=== PATIENT | male | born 1980 | race Caucasian/White ===

== ENCOUNTER 2019-05-04 10:41 | Inpatient (IN) | payer OTHER ==
[2019-05-04 12:07] VITALS: BMI 26.8
--- NOTE | 2019-05-04 14:07 | HP ---
CIWA Score Nausea/Vomitin-No Nausea/No Vomiting Muscle Tremors: 1-None Visible, but Lindsey Anxiety: 1-Mildly Anxious Agitation: 1-Slight > Activity Paroxysmal Sweats: No Perspiration Orientation: 0-Oriented Tacttile Disturbances: 0-None Auditory Disturbances: 0-None Visual Disturbances: 0-None Headache: 1-Very Mild CIWA-Ar Total Score: 4 - Admission Criteria OASAS Guidelines: Admission for Medically Managed Detox: Requires at least one of the followin. CIWA greater than 12 2. Seizures within the past 24 hours 3. Delirium tremens within the past 24 hours 4. Hallucinations within the past 24 hours 5. Acute intervention needed for co occurring medical disorder 6. Acute intervention needed for co occurring psychiatric disorder 7. Severe withdrawal that cannot be handled at a lower level of care (continued vomiting, continued diarrhea, abnormal vital signs) requiring intravenous medication and/or fluids 8. Admitting History and Physical - Admission Chief Complaint: i need help to come in for rehab from alcohol,heroin,marijuana History of Present Illness: this 39 years old male with heroin,alcohol,marijuana abused seeking rehab,last treatment 03/16 in [facility] multiple admissions in detox and rehab homeless History Source: Patient Limitations to Obtaining History: No Limitations - Past Medical History STATISTICAL GENETICIST: Yes: Seizure, Other (last 12/14) Cardiovascular: Yes: HTN Hepatobiliary: Yes: Hepatitis C Psych: Yes: Addictions, Bipolar, Depression, Schizophrenia - Past Surgical History Past Surgical History: Yes: None - Smoking History Smoking history: Current every day smoker Have you smoked in the past 12 months: Yes Aproximately how many cigarettes per day: 20 - Alcohol/Substance Use Hx Alcohol Use: Yes History of Substance Use: reports: Heroin, Marijuana - Social History Usual Living Arrangement: Yes: Other (homeless) Occupation: unemployed History of Recent Travel: No Admission [facility] Chief Complaint: i need help to come in for rehab from heroin,alcohol,marijuana Allergies/Adverse Reactions: Allergies Allergy/AdvReac Type Severity Reaction Status Date / Time No Known Allergies Allergy Verified 05/04/19 12:00 History of Present Illness: this 39 years old male with heroin,marijuana and alcohol disorder,seeking rehab, multiple admissions in detox and rehab,last treatment [facility] in 03/16 weight loss htn hepatitis c schizophrenia nicotine dependence longest sobriety 10 years low back pain Exam Limitations: No Limitations - Ebola screening Have you traveled outside of the country in the last 21 days: No Have you had contact with anyone from an Ebola affected area: No Do you have a fever: No - Review of Systems Constitutional: No Symptoms Reported EENT: reports: No Symptoms Reported Respiratory: reports: No Symptoms reported Cardiac: reports: No Symptoms Reported GI: reports: No Symptoms Reported : reports: No Symptoms Reported Musculoskeletal: reports: Muscle Pain Neuro: reports: No Symptoms reported Endocrine: reports: No Symptoms Reported Psychiatric: reports: No Sypmtoms Reported, Judgement Intact, Mood/Affect Appropiate, Orientated x3 Patient History - Patient Medical History Hx Anemia: No Hx Asthma: Yes (on albuterol inhaler) Hx Chronic Obstructive Pulmonary Disease (COPD): No Hx Cancer: No Hx Cardiac Disorders: No Hx Congestive Heart Failure: No Hx Hypertension: Yes (on med) Hx Hypercholesterolemia: No Hx Pacemaker: No HX Cerebrovascular Accident: No Hx Seizures: Yes (last 02/13) Hx Dementia: No Hx Diabetes: No Hx Gastrointestinal Disorders: No Hx Liver Disease: No Hx Genitourinary Disorders: No Hx Sexually Transmitted Disorders: No Hx Renal Disease (ESRD): No Hx Thyroid Disease: No Hx Human Immunodeficiency Virus (HIV): No (last 02/13 negative) Hx Hepatitis C: Yes Hx Depression: No Hx Suicide Attempt: Yes (at age of 89 years) Hx Bipolar Disorder: Yes Hx Schizophrenia: No Other Medical History: no suicidal,no homicidal,chronic low back pain - Patient Surgical History Past Surgical History: No - PPD History Documented Results: Positive w/o proof Implanted On Prior [facility] Admission?: No PPD to be Administered?: No - Smoking Cessation Smoking history: Current every day smoker Have you smoked in the past 12 months: Yes Aproximately how many cigarettes per day: 20 Hx Chewing Tobacco Use: No Initiated information on smoking cessation: Yes 'Breaking Loose' booklet given: 05/04/19 - Substance & Tx. History Hx Alcohol Use: Yes Hx Substance Use: Yes Substance Use Type: Alcohol, Heroin, Marijuana Hx Substance Use Treatment: Yes (03/16 [facility]) - Substances abused Alcohol Substance route: Oral Frequency: 3-6 times per week Amount used: 3-5 beers Age of first use: 17 Date of last use: 05/03/19 Marijuana/Hashish Substance route: Smoking Frequency: 3-6 times per week Amount used: 1 blunt Age of first use: 16 Date of last use: 04/19/19 Heroin Substance route: Injection Frequency: Daily Amount used: 15-20 bags Age of first use: 35 Date of last use: 05/02/19 Alprazolam (Xanax) Substance route: Oral Frequency: Daily Amount used: 8mgs Age of first use: 37 Date of last use: 05/02/19 Admission Physical Exam [facility] - Vital Signs Vital Signs: Vital Signs - 24 hr 05/04/19 11:58 Temperature 99.3 F Pulse Rate 116 H Respiratory 19 Rate Blood Pressure 152/98 - Physical General Appearance: Yes: Within Normal Limits HEENTM: Yes: Normal ENT Inspection, Pharynx Normal Respiratory: Yes: Lungs Clear, Normal Breath Sounds, No Respiratory Distress Neck: Yes: Within Normal Limits, Supple, Trachea in good position Breast: Yes: Within Normal Limits Cardiology: Yes: Within Normal Limits, Regular Rhythm, Regular Rate, S1, S2 Abdominal: Yes: Within Normal Limits, Normal Bowel Sounds, Non Tender, Flat Genitourinary: Yes: Within Normal Limits Back: Yes: Within Normal Limits Musculoskeletal: Yes: Back pain, Muscle Pain Extremities: Yes: Within Normal Limits Neurological: Yes: pcts II-XII NML intact, Fully Oriented, Alert, Motor Strength 5/5 Integumentary: Yes: Within Normal Limits, Track Shepherd Lymphatic: Yes: Within Normal Limits - Diagnostic (1) Heroin abuse Current Visit: Yes Status: Chronic (2) Alcohol use disorder Current Visit: Yes Status: Chronic (3) Cannabis abuse Current Visit: Yes Status: Chronic (4) Benzodiazepine abuse Current Visit: Yes Status: Chronic (5) Asthma Current Visit: No Status: Acute (6) Hepatitis C Current Visit: No Status: Acute Cleared for Admission [facility] - Detox or Rehab Claeared for Rehab Admission: Yes Breathalyzer - Breathalyzer Breathalyzer: 0.001 Urine Drug Screen - Test Device Lot number: [id number] Expiration date: 01/25/21 - Control Is test valid?: Yes - Results Drug screen NEGATIVE: No Urine drug screen results: THC-Marijuana Inpatient Rehab Admission - Rehab Decision to Admit Inpatient rehab admission?: Yes - Initial Determination Are CD services needed?: Yes Free of communicable disease: Yes Not in need of hospitalization: Yes - Rehab Admission Criteria Previous failed treatment: Yes Poor recovery environment: Yes Comorbidities: Yes Lacks judgement: No Patient is meeting Inpatient Rehab admission criteria:: Yes
[2019-05-04] MEDS ORDERED: MAGNESIUM HYDROX 2400MG/30ML ORAL SUSPENSION 30 ML CUP PO PRN (14:25)
[2019-05-04] MEDS ORDERED: MAGNESIUM CITRATE 300 ML BOTTLE PO PRN (14:25)
[2019-05-04] MEDS ORDERED: LOPERAMIDE HCL 2 MG CAPSULE PO PRN (14:25)
[2019-05-04] MEDS ORDERED: cloNIDine HCL 0.1 MG TABLET PO ONE (14:30)
[2019-05-04] MEDS: hydrOXYzine PAMOATE 50 MG CAPSULE (FP) PO PRN (15:56)
[2019-05-04] MEDS: NICOTINE 21 MG/24 HOURS TOPICAL PATCH TD SCH (15:57)
[2019-05-04] MEDS: METHOCARBAMOL 500 MG TABLET PO PRN (15:57)
[2019-05-04 17:13] LABS: HEMATOCRIT 42.8 % (35.4-49); HEMOGLOBIN 14.3 GM/dL (11.7-16.9); MCH 29.3 pg (25.7-33.7); MCHC 33.3 g/dl (32.0-35.9); MEAN PLT VOLUME 9.4 fl (7.5-11.1); PLATELET COUNT 271 K/MM3 (134-434); RBC 4.87 M/mm3 (4.00-5.60); RDW 15.6 % (11.9-15.9); WHITE BLOOD COUNT 8.7 K/mm3 (4.0-10.0)
--- NOTE | 2019-05-04 17:33 | CONSULT ---
[facility] Psychiatric Consult - Data Date of interview: 05/04/19 Admission source: [facility] Identifying data: First visit to [facility] and direct admission to [address] for this 39 y/o male self-referred for rehabilitative care addressing DOMINIC issues (opioid, alcohol, benzodiazepine, cannabis, nicotine) co- morbid with schizoaffective disorder. Patient is , a father of three, homeless, unemployed and supported on odd jobs. Substance Abuse History: Discussed with the patient. Refer to substance abuse section of [facility] report for details : Smoking history: Current every day smoker. Have you smoked in the past 12 months: Yes. Aproximately how many cigarettes per day: 20. Hx Chewing Tobacco Use: No. Initiated information on smoking cessation: Yes. 'Breaking Loose' booklet given: 05/04/19. - Substance & Tx. History. Hx Alcohol Use: Yes. Hx Substance Use: Yes. Substance Use Type: Alcohol, Heroin, Marijuana. Hx Substance Use Treatment: Yes (03/16). - Substances abused. Alcohol. Substance route: Oral. Frequency: 3-6 times per week. Amount used: 3-5 beers. Age of first use: 17. Date of last use: . Marijuana/Hashish. Substance route: Smoking. Frequency: 3-6 times per week. Amount used: 1 blunt. Age of first use: 16. Date of last use: 04/19. Heroin. Substance route: Injection. Frequency: Daily. Amount used: 15-20 bags. Age of first use: 35. Date of last use: 05/02/19. Alprazolam ( Xanax). Substance route: Oral. Frequency: Daily. Amount used: 8mgs. Age of first use: 37. Date of last use: 05/02/19 Medical History: Medical profile is remarkable for bronchial asthma, seizure disorder (on levetiracetam), hepatitis C, antecedent of coma x 4 days (unknown etiology) in January 2019, positive PPD (treated with INH/B6 in the past) and hypertension. No reported allergies. Psychiatric History: Patient endorses a distant history of psychiatric hospitalizations at [facility] (last admitted at age 19). Diagnosed with shizoaffective disorder. Mr Perla reports prior maintenance on olanzapine + clonazepam. No recent conection with psychiatric OPD care providers. Patient used to be on methadone maintenance (180 mg/day) at the [facility] program in the [place]. Switched to suboxone. Has no recalll of date of his last medication intake. Patient admits to history of three suicide attempts (self- mutilation + deliberate ingestion of detergents). Physical/Sexual Abuse/Trauma History: Heavy stressors : recent of girlfriend, homelessness, lack of a support network, absence of vocational skills, financial difficulties, serious medical illness (seizures) and addictions. Additional Comment: Urine drug screen results: THC-Marijuana. Noted. Mental Status Exam - Mental Status Exam Alert and Oriented to: Time, Place, Person Cognitive Function: Good Patient Appearance: Well Groomed (tattoos : right side of neck, dorsal aspect of left hand) Mood: Withdrawn, Hopeful Affect: Mood Congruent, Constricted Patient Behavior: Fatigued, Appropriate (friendly), Cooperative Speech Pattern: Clear Voice Loudness: Normal Thought Process: Intact, Goal Oriented Thought Disorder: Not Present Hallucinations: Denies Suicidal Ideation: Denies Homicidal Ideation: Denies Insight/Judgement: Fair Sleep: Poorly, Difficulty falling asleep Appetite: Good Muscle strength/Tone: Normal Gait/Station: Normal Psychiatric Findings - Problem List ([place] 1, 2,3) (1) Alcohol use disorder Current Visit: Yes Status: Chronic (2) Heroin abuse Current Visit: Yes Status: Chronic (3) Benzodiazepine abuse Current Visit: Yes Status: Chronic (4) Cannabis abuse Current Visit: Yes Status: Chronic (5) History of schizoaffective disorder Current Visit: Yes Status: Chronic (6) Substance induced mood disorder Current Visit: Yes Status: Chronic (7) Insomnia Current Visit: Yes Status: Chronic (8) Non-compliance Current Visit: Yes Status: Acute Comment: With OPD care and medications. - Initial Treatment Plan Initial Treatment Plan: Psychoeducation. Empathy and support. Sleep hygiene. AA/ NA meetings. Motivational counseling. Groups. Medications : remeron 15 mg po hs + olanzapine 5 mg po hs. Side effects/benefits of both drugs are discussed with the patient.Mr Perla has expressed his agreement with this plan of care. Informed consent (verbal) obtained from the patient. Medications are verified via telephone contact with pharmacist ([phone]) at [facility] : on file are scripts for mirtazapine 15 mg/hs + olanzapine 10 mg/hs + keppra 1500 mg /day + vistaril 50 mg/prn tid (dated 04/29/2019). Observation.
[2019-05-04 17:35] LABS: ALBUMIN 3.7 g/dl (3.4-5.0); BILIRUBIN,TOTAL 0.2 mg/dL (0.2-1); BLOOD UREA NITROGEN 9.2 mg/dL (7-18); CALCIUM 8.7 mg/dL (8.5-10.1); CREATININE 0.8 mg/dL (0.55-1.3); POTASSIUM 4.1 mmol/L (3.5-5.1); TOT PROT 7.6 g/dl (6.4-8.2)
[2019-05-04] MEDS ORDERED: PATIENT'S OWN MEDICATION (NON-FORMULARY) (Hydroxyzine Hcl [Hydroxyzine Hcl] 50 MG) PO PRN (17:35)
[2019-05-04] MEDS: MAG HYDROX/AL HYDROX/SIMETH 30 ML UNIT-DOSE CUP PO PRN (19:54)
[2019-05-04] MEDS: THIAMINE HCL 100 MG TABLET (FP) PO SCH (21:18)
[2019-05-04] MEDS: levETIRAcetam 500 MG TABLET (FP) PO SCH (21:19)
[2019-05-04] MEDS: OLANZapine 5 MG TABLET PO SCH (21:19)
[2019-05-04] MEDS: MIRTAZAPINE 15 MG TABLET (FP) PO SCH (21:20)
[2019-05-04] MEDS: HYDROCORTISONE 0.5% TOPICAL CREAM 30 GM TUBE TP SCH (21:21)
[2019-05-04] MEDS: NICOTINE POLACRILEX 2 MG GUM BUC PRN (21:22)
--- NOTE | 2019-05-05 09:47 | PN ---
[facility] Progress Note Note: Document created on 05/05/19 and completed on 05/06/19: Pt is a 39 y/o male with a hx of DOMINCI-heroin, admitted to rehab from [facility]. Pt reports he was on Suboxone 8 mg sl 3 times/day but stopped 3 weeks ago because of being overwhelmed from of significant other in January(and i ended up relapsing")and lack of family support and knowledge about addiction. Pt states he will like to get back on suboxone. Pt does not remember the provider doctor' s name but has all pharmacy slip in his property. pt reports he overdosed at end of November 2018 "for the first time" and was in an induced coma for "4 days" from November ending to beginning of December 2018. Today, patient is requesting to see the psych for re-evaluation stating "i don't feel well, i'm crying and feel depressed maybe because just lost my son's(3 yrs old) mother who was raped and killed last January. I can't sleep well, mind racing,and have dreams of her telling him to take care of himself and do good". Pt reports he has to be there for his son. Pt was seen by Dr Puente on admission but wants a re-evaluation to talk about ongoing feelings.However pt denies S/H/I at this time. PMHx:HTN(clonidine and pt has own in property), Seizure disorder(on Keppra-pt did not bring),Hep C(untreated). Psych Hx:Schizoaffective disorder;Bipolar disorder. Others' Prescriptions Patient Name: Arturo Perla Date: 1980 Address: [address] [place] [address] Sex: Male Rx Written Rx Dispensed Drug Quantity Days Supply Prescriber Name 03/24/2019 03/24/2019 buprenorphine-naloxone 8-2 mg sl film 21 7 Cadence Keane MD 03/17/2019 03/17/2019 buprenorphine-naloxone 8-2 mg sl film 21 7 Ferny South MD 03/10/2019 03/10/2019 buprenorphine-naloxone 8-2 mg sl film 21 7 Ferny South MD 03/04/2019 03/04/2019 buprenorphine-naloxone 8-2 mg sl film 21 7 Cadence Keane MD Patient Name: Arturo Perla Date: 1980 Address: [address] [place] [address] Sex: Male Rx Written Rx Dispensed Drug Quantity Days Supply Prescriber Name 01/27/2019 01/27/2019 buprenorphine-naloxone 8-2 mg sl film 90 30 Humphrey Bradley Patient N Vital Signs - 24 hr 05/06/19 05/06/19 05/06/19 00:30 03:30 06:53 Temperature 97.4 F L Pulse Rate 99 H Respiratory 18 18 18 Rate Blood Pressure 135/110 H Laboratory Tests 05/04/19 05/04/19 05/04/19 14:50 14:50 14:50 WBC 8.7 RBC 4.87 Hgb 14.3 Hct 42.8 MCV 88.0 MCH 29.3 MCHC 33.3 RDW 15.6 Plt Count 271 MPV 9.4 Sodium 137 Potassium 4.1 Chloride 104 Carbon Dioxide 26 Anion Gap 7 L BUN 9.2 Creatinine 0.8 Est GFR (CKD-EPI)AfAm 131.34 Est GFR (CKD-EPI)NonAf 113.32 Random Glucose 82 Calcium 8.7 Total Bilirubin 0.2 AST 61 H ALT 199 H Alkaline Phosphatase 82 Total Protein 7.6 Albumin 3.7 Urine Color Urine Appearance Urine pH Ur Specific [place] Gap Urine Protein Urine Glucose (UA) Urine Ketones Urine Blood Urine Nitrite Urine Bilirubin Urine Urobilinogen Ur Leukocyte Esterase RPR Titer Nonreactive HIV 1&2 Antibody Screen HIV P24 Antigen 05/04/19 05/05/19 14:50 14:00 WBC RBC Hgb Hct MCV MCH MCHC RDW Plt Count MPV Sodium Potassium Chloride Carbon Dioxide Anion Gap BUN Creatinine Est GFR (CKD-EPI)AfAm Est GFR (CKD-EPI)NonAf Random Glucose Calcium Total Bilirubin AST ALT Alkaline Phosphatase Total Protein Albumin Urine Color Yellow Urine Appearance Clear Urine pH 7.5 Ur Specific [place] 1.016 Urine Protein Negative Urine Glucose (UA) Negative Urine Ketones Negative Urine Blood Negative Urine Nitrite Negative Urine Bilirubin Negative Urine Urobilinogen 0.2 Ur Leukocyte Esterase Negative RPR Titer HIV 1&2 Antibody Screen Negative HIV P24 Antigen Negative Labs reviewed with pt and noted. elevated AST/ALT Alert o x3,calm and communicating clearly. nad oob ambulating with steady gait. extremities/skin:no edema/skin intact. A/P new rehab pt Maintain safety psych consult for re-evaluation Seizure precautions in place. D/w pt will verify suboxone and consider if restart while in rehab. repeat AST/ALT;inr in the morning.
[2019-05-05] MEDS: NICOTINE 21 MG/24 HOURS TOPICAL PATCH TD SCH (10:20)
[2019-05-05] MEDS: PRENATAL VITAMINS W/ FOLIC ACID TABLET (FP) PO SCH (10:20)
[2019-05-05] MEDS: levETIRAcetam 500 MG TABLET (FP) PO SCH ×2 (10:21→21:24)
[2019-05-05] MEDS: cloNIDine HCL 0.1 MG TABLET PO SCH (10:21)
[2019-05-05] MEDS: HYDROCORTISONE 0.5% TOPICAL CREAM 30 GM TUBE TP SCH ×2 (10:21→21:26)
[2019-05-05] MEDS: MAG HYDROX/AL HYDROX/SIMETH 30 ML UNIT-DOSE CUP PO PRN (10:23)
[2019-05-05] MEDS ORDERED: FLU VACCINE QUAD 60 MCG/0.5 ML (MDV 19-20) IM ONE (12:00)
[2019-05-05] MEDS: hydrOXYzine PAMOATE 50 MG CAPSULE (FP) PO PRN ×2 (12:47→21:24)
[2019-05-05] MEDS: METHOCARBAMOL 500 MG TABLET PO PRN ×2 (12:47→21:25)
[2019-05-05] MEDS: ACETAMINOPHEN 325 MG TABLET (FP) PO PRN (12:47)
[2019-05-05] MEDS: LIDOCAINE 5% TOPICAL PATCH TP SCH (14:42)
[2019-05-05] MEDS: IBUPROFEN 400 MG TABLET (FP) PO PRN (16:50)
[2019-05-05 17:40] LABS: PH,URINE 7.5 (5.0-8.0); URINE APPEARANCE CLEAR; URINE BILIRUBIN NEGATIVE (NEGATIVE); URINE COLOR YELLOW; URINE GLUCOSE (UA) NEGATIVE (NEGATIVE); URINE KETONE NEGATIVE (NEGATIVE); URINE LEUK ESTERASE NEGATIVE (NEGATIVE); URINE NITRITE NEGATIVE (NEGATIVE); URINE PROTEIN NEGATIVE (NEGATIVE); URINE UROBILINOGEN 0.2 mg/dL (0.2-1.0)
[2019-05-05] MEDS: MELATONIN 5 MG TABLETS PO PRN (21:24)
[2019-05-05] MEDS: MIRTAZAPINE 15 MG TABLET (FP) PO SCH (21:25)
[2019-05-05] MEDS: THIAMINE HCL 100 MG TABLET (FP) PO SCH (21:25)
[2019-05-05] MEDS: OLANZapine 5 MG TABLET PO SCH (21:25)
[2019-05-05] MEDS: LIDOCAINE PATCH REMOVAL MC SCH (21:26)
[2019-05-05] MEDS: NICOTINE POLACRILEX 2 MG GUM BUC PRN (21:27)
[2019-05-06] MEDS: MAG HYDROX/AL HYDROX/SIMETH 30 ML UNIT-DOSE CUP PO PRN ×2 (00:24→19:16)
[2019-05-06] MEDS: NICOTINE POLACRILEX 2 MG GUM BUC PRN ×3 (06:45→15:02)
[2019-05-06] MEDS: METHOCARBAMOL 500 MG TABLET PO PRN ×4 (06:45→21:17)
[2019-05-06] MEDS: cloNIDine HCL 0.1 MG TABLET PO SCH (09:05)
[2019-05-06] MEDS: PRENATAL VITAMINS W/ FOLIC ACID TABLET (FP) PO SCH (09:05)
[2019-05-06] MEDS: levETIRAcetam 500 MG TABLET (FP) PO SCH ×2 (09:05→21:16)
[2019-05-06] MEDS: LIDOCAINE 5% TOPICAL PATCH TP SCH (09:06)
[2019-05-06] MEDS: hydrOXYzine PAMOATE 50 MG CAPSULE (FP) PO PRN (09:06)
[2019-05-06] MEDS: HYDROCORTISONE 0.5% TOPICAL CREAM 30 GM TUBE TP SCH ×2 (09:07→21:24)
[2019-05-06] MEDS: NICOTINE 21 MG/24 HOURS TOPICAL PATCH TD SCH (09:08)
[2019-05-06] MEDS: IBUPROFEN 400 MG TABLET (FP) PO PRN (09:08)
[2019-05-06] MEDS: PANTOPRAZOLE 40 MG TABLET PO SCH (11:08)
[2019-05-06] MEDS: OLANZapine 5 MG TABLET PO SCH (21:16)
[2019-05-06] MEDS: MELATONIN 5 MG TABLETS PO PRN (21:16)
[2019-05-06] MEDS: MIRTAZAPINE 15 MG TABLET (FP) PO SCH (21:16)
[2019-05-06] MEDS: THIAMINE HCL 100 MG TABLET (FP) PO SCH (21:16)
[2019-05-06] MEDS: LIDOCAINE PATCH REMOVAL MC SCH (21:24)
[2019-05-07] MEDS: METHOCARBAMOL 500 MG TABLET PO PRN ×4 (06:23→21:26)
[2019-05-07] MEDS: hydrOXYzine PAMOATE 50 MG CAPSULE (FP) PO PRN ×3 (06:23→21:26)
[2019-05-07] MEDS: NICOTINE POLACRILEX 2 MG GUM BUC PRN ×4 (06:24→21:27)
[2019-05-07] MEDS: LIDOCAINE 5% TOPICAL PATCH TP SCH (10:14)
[2019-05-07] MEDS: NICOTINE 21 MG/24 HOURS TOPICAL PATCH TD SCH (10:14)
[2019-05-07] MEDS: levETIRAcetam 500 MG TABLET (FP) PO SCH ×2 (10:15→21:23)
[2019-05-07] MEDS: PRENATAL VITAMINS W/ FOLIC ACID TABLET (FP) PO SCH (10:15)
[2019-05-07] MEDS: PANTOPRAZOLE 40 MG TABLET PO SCH (10:15)
[2019-05-07] MEDS: cloNIDine HCL 0.1 MG TABLET PO SCH (10:16)
[2019-05-07] MEDS: HYDROCORTISONE 0.5% TOPICAL CREAM 30 GM TUBE TP SCH ×2 (10:16→21:23)
[2019-05-07 12:01] LABS: SGOT/AST 81 U/L (15-37); SGPT/ALT 190 U/L (13-61)
[2019-05-07 14:03] LABS: INR 0.88 (0.83-1.09); PROTHROMBIN TIME (PATIENT) 10.4 SEC (9.7-13.0)
[2019-05-07] MEDS ORDERED: OLANZapine 5 MG TABLET PO ONE (14:07)
--- NOTE | 2019-05-07 14:12 | PN ---
Psychiatric Progress Note Vital Signs: Vital Signs Period Temp Pulse Resp BP Sys/Luz Pulse Ox Last 24 Hr 97.0 F 94-122 18-18 137-137/71-98 Date of Session: 05/07/19 Chief Complaint:: " I'm hearing voices" HPI: Mr Perla is a 39 years old male with history of Schizoaffective disorder and PMH of Seizure Disorder, Bronchial athma, HTN, Hepatitis C, treatment for PPD+ admitted on 05/04/19 for inpatient rehabilitation for alcohol, opioid, benzodiazepine and cannabis. Consult requested citing "patient not feeling well, down, depressed, anxious". Dr Puente' note read and appreciated Current Medications: Active Medications Generic Name Dose Route Start Last Admin Trade Name Freq PRN Reason Stop Dose Admin Acetaminophen 650 mg 05/04/19 14:25 05/05/19 12:47 Tylenol - PO 650 mg Q4H PRN Administration FEVER Al Hydroxide/Mg Hydroxide 30 ml 05/04/19 14:25 05/06/19 19:16 Mylanta Oral Suspension - PO 30 ml Q6H PRN Administration DYSPEPSIA Albuterol Sulfate 2 puff 05/04/19 14:30 Ventolin Hfa Inhaler - IH Q4H PRN SHORT OF BREATH/WHEEZING Clonidine 0.2 mg 05/05/19 10:00 05/07/19 10:16 Catapres - PO 0.2 mg DAILY SOCORRO Administration Eucalyptus/Menthol/Phenol/Sorbitol 1 each 05/04/19 14:25 Cepastat Lozenge - MM Q4H PRN SORE THROAT Guaifenesin 10 ml 05/04/19 14:25 Robitussin - PO Q6H PRN COUGH Hydrocortisone 1 applic 05/04/19 22:00 05/07/19 10:16 Hytone 0.5% Cream - TP Not Given BID SOCORRO Hydroxyzine Pamoate 50 mg 05/04/19 14:25 05/07/19 06:23 Vistaril - PO 50 mg Q4H PRN Administration AGITATION Ibuprofen 400 mg 05/04/19 14:25 05/06/19 09:08 Motrin - PO 400 mg Q6H PRN Administration Pain level 4-6 Levetiracetam 1,500 mg 05/04/19 22:00 05/07/19 10:15 Keppra - PO 1,500 mg BID SOCORRO Administration Lidocaine 1 patch 05/05/19 13:15 05/07/19 10:14 Lidoderm Patch - TP 1 patch DAILY SOCORRO Administration Loperamide HCl 4 mg 05/04/19 14:25 Imodium - PO Q6H PRN DIARRHEA Magnesium Citrate 300 ml 05/04/19 14:25 Citroma - PO Q48H PRN CONSTIPATION Magnesium Hydroxide 30 ml 05/04/19 14:25 Milk Of Magnesia - PO DAILY PRN CONSTIPATION Melatonin 5 mg 05/04/19 22:00 05/06/19 21:16 Melatonin PO 5 mg HS PRN Administration INSOMNIA Methocarbamol 500 mg 05/04/19 14:34 05/07/19 11:07 Robaxin - PO 05/08/19 23:59 500 mg QID PRN Administration MUSCLE SPASMS Mirtazapine 15 mg 05/04/19 22:00 05/06/19 21:16 Remeron - PO 15 mg HS SOCORRO Administration Miscellaneous 1 each 05/05/19 22:00 05/06/19 21:24 Lidoderm Patch Removal MC 1 each DAILY@2200 SOCORRO Administration Nicotine 21 mg 05/04/19 14:30 05/07/19 10:14 Nicoderm Patch - TD 21 mg DAILY SOCORRO Administration Nicotine Polacrilex 2 mg 05/04/19 14:25 05/07/19 10:21 Nicorette Gum - BUC 2 mg Q2H PRN Administration NICOTINE REPLACEMENT RX Olanzapine 10 mg 05/07/19 22:00 Zyprexa - PO HS SOCORRO Olanzapine 5 mg 05/07/19 14:07 Zyprexa - PO 05/07/19 14:08 ONCE ONE Pantoprazole Sodium 40 mg 05/06/19 10:15 05/07/19 10:15 Protonix - PO 40 mg DAILY SOCORRO Administration Multivit/Folic Acid/Iron 1 tab 05/05/19 10:00 05/07/19 10:15 Vitamins ([facility]) - PO 1 tab DAILY SOCORRO Administration Pseudoephedrine/Triprolidine 1 combo 05/04/19 14:25 Actifed - PO TID PRN NASAL CONGESTION Thiamine HCl 100 mg 05/04/19 22:00 05/06/19 21:16 Vitamin B1 - PO 100 mg HS SOCORRO Administration Medication(s) Change(s): 1) Dicontinue Zyprexa 5 mg/hs. 2) Start Zypreza 5 mg po stat then Zyprexa 10 mg po HS Current Side Effect: No Lab tests ordered: Yes Lab tests reviewed: Yes Provider note:: Patient seen and evaluated. He was alert, cooperative, forth coming with information. He reluctantly admits hearing voices telling to use drug and last heard them a few minutes ago. He reports that he stopped taking his medications and resarted taking a little bit over a week ago. He also reports feeling anxious. However, denies feeling suicidal, homicidal Mental Status Exam - Mental Status Exam Alert and Oriented to: Time, Place, Person Cognitive Function: Fair Patient Appearance: Well Groomed Mood: Depressed Affect: Appropriate Patient Behavior: Cooperative Speech Pattern: Clear Voice Loudness: Normal Thought Process: Intact, Goal Oriented Thought Disorder: Not Present Hallucinations: Auditory (Hears voices telling to use) Suicidal Ideation: Denies Homicidal Ideation: Denies Insight/Judgement: Fair Sleep: Fair Appetite: Good Muscle strength/Tone: Normal Gait/Station: Normal Psychiatric Treatment Plan - Problem List (1) Schizoaffective disorder Current Visit: Yes (2) Alcohol dependence Current Visit: Yes (3) Opioid dependence Current Visit: Yes (4) Sedative hypnotic or anxiolytic dependence Current Visit: Yes (5) Cannabis dependence Current Visit: Yes (6) Nicotine dependence Current Visit: Yes (7) Nicotine dependence Current Visit: Yes (8) Asthma Current Visit: No (9) Hepatitis C Current Visit: No (10) HTN (hypertension) Current Visit: Yes (11) Seizure disorder Current Visit: Yes Initial treatment plan: 1) Continue Vistaril 50 mg po Q 4hrs prm for anxiety. 2 ) Discontinue Zyprexa as currently ordered. 3) Start Zyprexa 5 mg po stat and 5 mg po HS. 4) Continue inpatient rehabilitation and monitor progress
[2019-05-07] MEDS: LIDOCAINE PATCH REMOVAL MC SCH (21:24)
[2019-05-07] MEDS: MIRTAZAPINE 15 MG TABLET (FP) PO SCH (21:24)
[2019-05-07] MEDS: MELATONIN 5 MG TABLETS PO PRN (21:24)
[2019-05-07] MEDS: OLANZapine 10 MG TABLET PO SCH (21:24)
[2019-05-07] MEDS: THIAMINE HCL 100 MG TABLET (FP) PO SCH (21:24)
[2019-05-08] MEDS: hydrOXYzine PAMOATE 50 MG CAPSULE (FP) PO PRN ×5 (03:47→22:40)
[2019-05-08] MEDS: METHOCARBAMOL 500 MG TABLET PO PRN ×4 (07:08→21:20)
[2019-05-08] MEDS: cloNIDine HCL 0.1 MG TABLET PO SCH (10:06)
[2019-05-08] MEDS: levETIRAcetam 500 MG TABLET (FP) PO SCH ×2 (10:06→21:19)
[2019-05-08] MEDS: PANTOPRAZOLE 40 MG TABLET PO SCH (10:06)
[2019-05-08] MEDS: LIDOCAINE 5% TOPICAL PATCH TP SCH (10:07)
[2019-05-08] MEDS: NICOTINE 21 MG/24 HOURS TOPICAL PATCH TD SCH (10:07)
[2019-05-08] MEDS: PRENATAL VITAMINS W/ FOLIC ACID TABLET (FP) PO SCH (10:07)
[2019-05-08] MEDS: HYDROCORTISONE 0.5% TOPICAL CREAM 30 GM TUBE TP SCH ×2 (10:09→21:18)
[2019-05-08] MEDS: NICOTINE POLACRILEX 2 MG GUM BUC PRN ×2 (10:09→21:22)
[2019-05-08] MEDS: THIAMINE HCL 100 MG TABLET (FP) PO SCH (21:19)
[2019-05-08] MEDS: LIDOCAINE PATCH REMOVAL MC SCH (21:19)
[2019-05-08] MEDS: MIRTAZAPINE 15 MG TABLET (FP) PO SCH (21:19)
[2019-05-08] MEDS: OLANZapine 10 MG TABLET PO SCH (21:19)
[2019-05-09] MEDS: hydrOXYzine PAMOATE 50 MG CAPSULE (FP) PO PRN ×3 (06:17→17:58)
[2019-05-09] MEDS: NICOTINE POLACRILEX 2 MG GUM BUC PRN ×4 (06:18→21:20)
[2019-05-09] MEDS: NICOTINE 21 MG/24 HOURS TOPICAL PATCH TD SCH (09:54)
[2019-05-09] MEDS: LIDOCAINE 5% TOPICAL PATCH TP SCH (09:54)
[2019-05-09] MEDS: PANTOPRAZOLE 40 MG TABLET PO SCH (09:55)
[2019-05-09] MEDS: PRENATAL VITAMINS W/ FOLIC ACID TABLET (FP) PO SCH (09:55)
[2019-05-09] MEDS: cloNIDine HCL 0.1 MG TABLET PO SCH (09:55)
[2019-05-09] MEDS: levETIRAcetam 500 MG TABLET (FP) PO SCH ×2 (09:56→21:17)
[2019-05-09] MEDS: METHOCARBAMOL 500 MG TABLET PO PRN ×3 (09:57→21:19)
[2019-05-09] MEDS: HYDROCORTISONE 0.5% TOPICAL CREAM 30 GM TUBE TP SCH ×2 (14:46→21:18)
[2019-05-09] MEDS ORDERED: levETIRAcetam 250 MG TABLET PO ONE (18:48)
[2019-05-09] MEDS: THIAMINE HCL 100 MG TABLET (FP) PO SCH (21:17)
[2019-05-09] MEDS: MIRTAZAPINE 15 MG TABLET (FP) PO SCH (21:17)
[2019-05-09] MEDS: LIDOCAINE PATCH REMOVAL MC SCH (21:18)
[2019-05-09] MEDS: OLANZapine 10 MG TABLET PO SCH (21:18)
[2019-05-10] MEDS: hydrOXYzine PAMOATE 50 MG CAPSULE (FP) PO PRN ×3 (05:47→21:19)
[2019-05-10] MEDS: METHOCARBAMOL 500 MG TABLET PO PRN ×3 (05:47→21:19)
[2019-05-10] MEDS: cloNIDine HCL 0.1 MG TABLET PO SCH (10:19)
[2019-05-10] MEDS: levETIRAcetam 500 MG TABLET (FP) PO SCH ×2 (10:19→21:18)
[2019-05-10] MEDS: PANTOPRAZOLE 40 MG TABLET PO SCH (10:19)
[2019-05-10] MEDS: HYDROCORTISONE 0.5% TOPICAL CREAM 30 GM TUBE TP SCH ×2 (10:19→21:20)
[2019-05-10] MEDS: NICOTINE 21 MG/24 HOURS TOPICAL PATCH TD SCH (10:20)
[2019-05-10] MEDS: PRENATAL VITAMINS W/ FOLIC ACID TABLET (FP) PO SCH (10:20)
[2019-05-10] MEDS ORDERED: cloNIDine HCL 0.1 MG TABLET PO ONE (12:11)
[2019-05-10] MEDS ORDERED: PANTOPRAZOLE 40 MG TABLET PO ONE (12:12)
[2019-05-10] MEDS ORDERED: levETIRAcetam 500 MG TABLET (FP) PO ONE (12:12)
[2019-05-10] MEDS: NICOTINE POLACRILEX 2 MG GUM BUC PRN ×2 (12:20→21:20)
[2019-05-10] MEDS: LIDOCAINE 5% TOPICAL PATCH TP SCH (12:52)
--- NOTE | 2019-05-10 15:19 | PN ---
S Progress Note Note: Pt stated today that he wants to hold off on restarting suboxone untill he knows where he is going for aftercare as he does not want to go back to the neighborhood where he was receiving suboxone treatment. Wants to explore [facility] aftercare. Vital Signs - 24 hr 05/10/19 05/10/19 00:30 06:53 Temperature 97.1 F L Pulse Rate 113 H Respiratory 18 18 Rate Blood Pressure 134/76 Alert o x 3 nad oob ambulating with steady gait and visible on the unit. Plan to follow up with counselor for aftercare planning.
[2019-05-10] MEDS: OLANZapine 10 MG TABLET PO SCH (21:18)
[2019-05-10] MEDS: THIAMINE HCL 100 MG TABLET (FP) PO SCH (21:18)
[2019-05-10] MEDS: MIRTAZAPINE 15 MG TABLET (FP) PO SCH (21:18)
[2019-05-10] MEDS: MELATONIN 5 MG TABLETS PO PRN (21:19)
[2019-05-10] MEDS: LIDOCAINE PATCH REMOVAL MC SCH (21:20)
[2019-05-11] MEDS: hydrOXYzine PAMOATE 50 MG CAPSULE (FP) PO PRN ×3 (06:07→21:23)
[2019-05-11] MEDS: METHOCARBAMOL 500 MG TABLET PO PRN ×4 (06:07→21:21)
[2019-05-11] MEDS: levETIRAcetam 500 MG TABLET (FP) PO SCH ×2 (10:14→21:19)
[2019-05-11] MEDS: PANTOPRAZOLE 40 MG TABLET PO SCH (10:14)
[2019-05-11] MEDS: PRENATAL VITAMINS W/ FOLIC ACID TABLET (FP) PO SCH (10:14)
[2019-05-11] MEDS: cloNIDine HCL 0.1 MG TABLET PO SCH (10:14)
[2019-05-11] MEDS: LIDOCAINE 5% TOPICAL PATCH TP SCH (10:15)
[2019-05-11] MEDS: HYDROCORTISONE 0.5% TOPICAL CREAM 30 GM TUBE TP SCH ×2 (10:15→21:19)
[2019-05-11] MEDS: NICOTINE 21 MG/24 HOURS TOPICAL PATCH TD SCH (10:15)
[2019-05-11] MEDS: IBUPROFEN 400 MG TABLET (FP) PO PRN (14:40)
[2019-05-11] MEDS: NICOTINE POLACRILEX 2 MG GUM BUC PRN ×2 (15:29→21:22)
[2019-05-11] MEDS ORDERED: BUPRENORPHINE/NALOXONE 4 MG/1 MG FILM PACKET SL ONE (15:30)
[2019-05-11] MEDS: MIRTAZAPINE 15 MG TABLET (FP) PO SCH (21:20)
[2019-05-11] MEDS: OLANZapine 10 MG TABLET PO SCH (21:20)
[2019-05-11] MEDS: LIDOCAINE PATCH REMOVAL MC SCH (21:20)
[2019-05-11] MEDS: MELATONIN 5 MG TABLETS PO PRN (21:21)
[2019-05-11] MEDS: THIAMINE HCL 100 MG TABLET (FP) PO SCH (21:21)
[2019-05-12] MEDS: hydrOXYzine PAMOATE 50 MG CAPSULE (FP) PO PRN ×3 (06:33→21:20)
[2019-05-12] MEDS: METHOCARBAMOL 500 MG TABLET PO PRN ×3 (06:33→21:20)
[2019-05-12] MEDS: NICOTINE POLACRILEX 2 MG GUM BUC PRN ×3 (06:34→21:22)
[2019-05-12] MEDS: levETIRAcetam 500 MG TABLET (FP) PO SCH ×2 (09:24→21:20)
[2019-05-12] MEDS: cloNIDine HCL 0.1 MG TABLET PO SCH (10:40)
[2019-05-12] MEDS: PANTOPRAZOLE 40 MG TABLET PO SCH (10:41)
[2019-05-12] MEDS: HYDROCORTISONE 0.5% TOPICAL CREAM 30 GM TUBE TP SCH ×2 (10:41→21:22)
[2019-05-12] MEDS: PRENATAL VITAMINS W/ FOLIC ACID TABLET (FP) PO SCH (10:41)
[2019-05-12] MEDS: NICOTINE 21 MG/24 HOURS TOPICAL PATCH TD SCH (10:41)
[2019-05-12] MEDS: LIDOCAINE 5% TOPICAL PATCH TP SCH (10:41)
[2019-05-12] MEDS: BUPRENORPHINE/NALOXONE 4 MG/1 MG FILM PACKET SL SCH (10:45)
[2019-05-12] MEDS: MIRTAZAPINE 15 MG TABLET (FP) PO SCH (21:20)
[2019-05-12] MEDS: THIAMINE HCL 100 MG TABLET (FP) PO SCH (21:20)
[2019-05-12] MEDS: OLANZapine 10 MG TABLET PO SCH (21:20)
[2019-05-12] MEDS: MELATONIN 5 MG TABLETS PO PRN (21:21)
[2019-05-12] MEDS: LIDOCAINE PATCH REMOVAL MC SCH (21:21)
[2019-05-13] MEDS: hydrOXYzine PAMOATE 50 MG CAPSULE (FP) PO PRN ×4 (06:15→21:19)
[2019-05-13] MEDS: METHOCARBAMOL 500 MG TABLET PO PRN ×3 (06:15→21:18)
[2019-05-13] MEDS: IBUPROFEN 400 MG TABLET (FP) PO PRN ×2 (06:15→13:51)
[2019-05-13] MEDS: NICOTINE POLACRILEX 2 MG GUM BUC PRN ×3 (06:18→21:19)
[2019-05-13] MEDS: PRENATAL VITAMINS W/ FOLIC ACID TABLET (FP) PO SCH (10:57)
[2019-05-13] MEDS: levETIRAcetam 500 MG TABLET (FP) PO SCH ×2 (10:58→21:18)
[2019-05-13] MEDS: PANTOPRAZOLE 40 MG TABLET PO SCH (10:58)
[2019-05-13] MEDS: cloNIDine HCL 0.1 MG TABLET PO SCH (10:58)
[2019-05-13] MEDS: LIDOCAINE 5% TOPICAL PATCH TP SCH (10:59)
[2019-05-13] MEDS: NICOTINE 21 MG/24 HOURS TOPICAL PATCH TD SCH (10:59)
[2019-05-13] MEDS: BUPRENORPHINE/NALOXONE 4 MG/1 MG FILM PACKET SL SCH ×2 (11:01→21:21)
[2019-05-13] MEDS: HYDROCORTISONE 0.5% TOPICAL CREAM 30 GM TUBE TP SCH ×2 (11:17→21:19)
[2019-05-13] MEDS: MIRTAZAPINE 15 MG TABLET (FP) PO SCH (21:18)
[2019-05-13] MEDS: OLANZapine 10 MG TABLET PO SCH (21:18)
[2019-05-13] MEDS: THIAMINE HCL 100 MG TABLET (FP) PO SCH (21:18)
[2019-05-13] MEDS: LIDOCAINE PATCH REMOVAL MC SCH (21:19)
[2019-05-14] MEDS: levETIRAcetam 500 MG TABLET (FP) PO SCH ×2 (10:30→21:14)
[2019-05-14] MEDS: PANTOPRAZOLE 40 MG TABLET PO SCH (10:30)
[2019-05-14] MEDS: PRENATAL VITAMINS W/ FOLIC ACID TABLET (FP) PO SCH (10:30)
[2019-05-14] MEDS: cloNIDine HCL 0.1 MG TABLET PO SCH (10:30)
[2019-05-14] MEDS: IBUPROFEN 400 MG TABLET (FP) PO PRN ×2 (10:31→21:15)
[2019-05-14] MEDS: hydrOXYzine PAMOATE 50 MG CAPSULE (FP) PO PRN ×3 (10:31→21:16)
[2019-05-14] MEDS: METHOCARBAMOL 500 MG TABLET PO PRN ×3 (10:31→21:16)
[2019-05-14] MEDS: LIDOCAINE 5% TOPICAL PATCH TP SCH (10:32)
[2019-05-14] MEDS: NICOTINE 21 MG/24 HOURS TOPICAL PATCH TD SCH (10:32)
[2019-05-14] MEDS: BUPRENORPHINE/NALOXONE 4 MG/1 MG FILM PACKET SL SCH ×2 (10:32→21:15)
[2019-05-14] MEDS: NICOTINE POLACRILEX 2 MG GUM BUC PRN ×3 (10:33→21:14)
[2019-05-14] MEDS: HYDROCORTISONE 0.5% TOPICAL CREAM 30 GM TUBE TP SCH ×2 (12:14→21:15)
[2019-05-14] MEDS: MIRTAZAPINE 15 MG TABLET (FP) PO SCH (21:14)
[2019-05-14] MEDS: OLANZapine 10 MG TABLET PO SCH (21:14)
[2019-05-14] MEDS: LIDOCAINE PATCH REMOVAL MC SCH (21:15)
[2019-05-14] MEDS: MELATONIN 5 MG TABLETS PO PRN (21:15)
[2019-05-14] MEDS: THIAMINE HCL 100 MG TABLET (FP) PO SCH (21:15)
[2019-05-15] MEDS: IBUPROFEN 400 MG TABLET (FP) PO PRN (06:03)
[2019-05-15] MEDS: METHOCARBAMOL 500 MG TABLET PO PRN ×4 (06:03→21:17)
[2019-05-15] MEDS: hydrOXYzine PAMOATE 50 MG CAPSULE (FP) PO PRN ×4 (06:03→21:17)
[2019-05-15] MEDS: NICOTINE POLACRILEX 2 MG GUM BUC PRN ×3 (06:04→21:17)
[2019-05-15] MEDS: NICOTINE 21 MG/24 HOURS TOPICAL PATCH TD SCH (09:20)
[2019-05-15] MEDS: HYDROCORTISONE 0.5% TOPICAL CREAM 30 GM TUBE TP SCH ×2 (09:20→21:19)
[2019-05-15] MEDS: LIDOCAINE 5% TOPICAL PATCH TP SCH (09:21)
[2019-05-15] MEDS: PRENATAL VITAMINS W/ FOLIC ACID TABLET (FP) PO SCH (09:21)
[2019-05-15] MEDS: levETIRAcetam 500 MG TABLET (FP) PO SCH ×2 (09:21→21:18)
[2019-05-15] MEDS: PANTOPRAZOLE 40 MG TABLET PO SCH (09:21)
[2019-05-15] MEDS: cloNIDine HCL 0.1 MG TABLET PO SCH (09:23)
[2019-05-15] MEDS: BUPRENORPHINE/NALOXONE 4 MG/1 MG FILM PACKET SL SCH ×2 (09:23→21:17)
[2019-05-15] MEDS: OLANZapine 10 MG TABLET PO SCH (21:17)
[2019-05-15] MEDS: MIRTAZAPINE 15 MG TABLET (FP) PO SCH (21:17)
[2019-05-15] MEDS: THIAMINE HCL 100 MG TABLET (FP) PO SCH (21:18)
[2019-05-15] MEDS: MELATONIN 5 MG TABLETS PO PRN (21:18)
[2019-05-15] MEDS: LIDOCAINE PATCH REMOVAL MC SCH (21:19)
[2019-05-16] MEDS: P-EPHED 60MG/TRIPROLIDI 2.5MG TABLET PO PRN (04:07)
[2019-05-16] MEDS: IBUPROFEN 400 MG TABLET (FP) PO PRN (06:12)
[2019-05-16] MEDS: hydrOXYzine PAMOATE 50 MG CAPSULE (FP) PO PRN ×3 (06:13→21:32)
[2019-05-16] MEDS: METHOCARBAMOL 500 MG TABLET PO PRN ×3 (06:13→21:31)
[2019-05-16] MEDS ORDERED: levETIRAcetam 250 MG TABLET PO ONE ×2 (08:45→19:46)
[2019-05-16] MEDS: PANTOPRAZOLE 40 MG TABLET PO SCH (09:51)
[2019-05-16] MEDS: cloNIDine HCL 0.1 MG TABLET PO SCH (09:51)
[2019-05-16] MEDS: HYDROCORTISONE 0.5% TOPICAL CREAM 30 GM TUBE TP SCH ×2 (09:51→21:28)
[2019-05-16] MEDS: PRENATAL VITAMINS W/ FOLIC ACID TABLET (FP) PO SCH (09:51)
[2019-05-16] MEDS: NICOTINE 21 MG/24 HOURS TOPICAL PATCH TD SCH (09:51)
[2019-05-16] MEDS: BUPRENORPHINE/NALOXONE 4 MG/1 MG FILM PACKET SL SCH ×2 (09:51→21:31)
[2019-05-16] MEDS: LIDOCAINE 5% TOPICAL PATCH TP SCH (09:52)
[2019-05-16] MEDS: levETIRAcetam 500 MG TABLET (FP) PO SCH ×2 (09:52→21:29)
[2019-05-16] MEDS: THIAMINE HCL 100 MG TABLET (FP) PO SCH (21:29)
[2019-05-16] MEDS: LIDOCAINE PATCH REMOVAL MC SCH (21:29)
[2019-05-16] MEDS: OLANZapine 10 MG TABLET PO SCH (21:29)
[2019-05-16] MEDS: MIRTAZAPINE 15 MG TABLET (FP) PO SCH (21:29)
[2019-05-16] MEDS: MELATONIN 5 MG TABLETS PO PRN (21:30)
[2019-05-17] MEDS: cloNIDine HCL 0.1 MG TABLET PO SCH (09:34)
[2019-05-17] MEDS: PRENATAL VITAMINS W/ FOLIC ACID TABLET (FP) PO SCH (09:35)
[2019-05-17] MEDS: NICOTINE 21 MG/24 HOURS TOPICAL PATCH TD SCH (09:35)
[2019-05-17] MEDS: LIDOCAINE 5% TOPICAL PATCH TP SCH (09:35)
[2019-05-17] MEDS: PANTOPRAZOLE 40 MG TABLET PO SCH (09:35)
[2019-05-17] MEDS: BUPRENORPHINE/NALOXONE 4 MG/1 MG FILM PACKET SL SCH ×2 (09:35→21:18)
[2019-05-17] MEDS: hydrOXYzine PAMOATE 50 MG CAPSULE (FP) PO PRN ×3 (09:37→21:18)
[2019-05-17] MEDS: MENTHOL/PHENOL 1 EACH UD MM PRN ×2 (09:37→22:44)
[2019-05-17] MEDS: METHOCARBAMOL 500 MG TABLET PO PRN ×3 (09:37→21:18)
[2019-05-17] MEDS: guaiFENesin 200 MG/10 ML 10 ML UNIT-DOSE CUPS PO PRN ×2 (09:37→16:58)
[2019-05-17] MEDS: levETIRAcetam 500 MG TABLET (FP) PO SCH ×2 (09:44→21:18)
[2019-05-17] MEDS: HYDROCORTISONE 0.5% TOPICAL CREAM 30 GM TUBE TP SCH ×2 (09:45→21:19)
[2019-05-17] MEDS: ALBUTEROL SO4 HFA INHALER IH PRN (12:52)
[2019-05-17] MEDS: OLANZapine 10 MG TABLET PO SCH (21:18)
[2019-05-17] MEDS: THIAMINE HCL 100 MG TABLET (FP) PO SCH (21:18)
[2019-05-17] MEDS: MIRTAZAPINE 15 MG TABLET (FP) PO SCH (21:18)
[2019-05-17] MEDS: MELATONIN 5 MG TABLETS PO PRN (21:19)
[2019-05-17] MEDS: LIDOCAINE PATCH REMOVAL MC SCH (21:20)
[2019-05-17] MEDS: NICOTINE POLACRILEX 2 MG GUM BUC PRN (21:22)
[2019-05-18] MEDS: hydrOXYzine PAMOATE 50 MG CAPSULE (FP) PO PRN (04:42)
[2019-05-18] MEDS: METHOCARBAMOL 500 MG TABLET PO PRN (06:28)
[2019-05-18] MEDS: MENTHOL/PHENOL 1 EACH UD MM PRN (06:29)
[2019-05-18 07:24] VITALS: TEMP 98.1
[2019-05-18] MEDS: ALBUTEROL SO4 HFA INHALER IH PRN (10:28)
[2019-05-18] MEDS: P-EPHED 60MG/TRIPROLIDI 2.5MG TABLET PO PRN (10:29)
[2019-05-18] MEDS: levETIRAcetam 500 MG TABLET (FP) PO SCH (10:30)
[2019-05-18] MEDS: ACETAMINOPHEN 325 MG TABLET (FP) PO PRN (10:30)
[2019-05-18] MEDS: guaiFENesin 200 MG/10 ML 10 ML UNIT-DOSE CUPS PO PRN (10:31)
[2019-05-18] MEDS: PRENATAL VITAMINS W/ FOLIC ACID TABLET (FP) PO SCH (10:31)
[2019-05-18] MEDS: cloNIDine HCL 0.1 MG TABLET PO SCH (10:31)
[2019-05-18] MEDS: PANTOPRAZOLE 40 MG TABLET PO SCH (10:31)
[2019-05-18] MEDS: HYDROCORTISONE 0.5% TOPICAL CREAM 30 GM TUBE TP SCH (10:34)
[2019-05-18] MEDS: NICOTINE 21 MG/24 HOURS TOPICAL PATCH TD SCH (10:34)
[2019-05-18] MEDS: NICOTINE POLACRILEX 2 MG GUM BUC PRN (10:35)
[2019-05-18] MEDS: LIDOCAINE 5% TOPICAL PATCH TP SCH (10:35)
[2019-05-18] MEDS: BUPRENORPHINE/NALOXONE 4 MG/1 MG FILM PACKET SL ONE ×2 (11:06→12:23)
[2019-05-18 11:36] VITALS: BP 133/65; PULSE 105
--- NOTE | 2019-05-18 18:32 | RAPID ---
Physical Examination Vital Signs: Vital Signs Temperature 98.1 F 05/18/19 07:22 Pulse Rate 105 H 05/18/19 10:00 Respiratory Rate 20 05/18/19 07:22 Blood Pressure 133/65 05/18/19 10:00 O2 Sat by Pulse Oximetry (%) Labs: CBC, BMP 05/04/19 14:50 05/04/19 14:50 Rapid Response - Rapid Response Assessment: Rapid response called overhead 17:10. Rapid response team responded immediately. nurse was found in room and states pt was found unresponsive and pulseless in bathroom with head in trash can with bloody vomitus. Last known well at 16: 15. 911 was called. pt moved out of bathroom and compressions started immediately. AED pads were placed. supplemental oxygen and ventilation was started. Narcan 4mg x 2 intranasal administered. Narcan 4 mg x 2 IM administered EMS arrived . rhythm analyzed and found pulseless and asystole . KASEY device connected L EJ line placed. Pt intubated by fish fryer ACLS protocol continued IV narcan 4 mg given rhythm analyzed . pt pulseless and asystole. compressions resumed IV Narcan 4mg given Bicarb given ACLS time at [facility] care: 32 minutes compressions continued, pt was transported to [facility] ED with KASEY
--- NOTE | 2019-05-18 18:41 | PN ---
[facility] Progress Note Note: rapid response : pt found unresponsive in the bathroom . High -quality CPR administered until EMS arrival. Narcan x 2 IN and Narcan x2 i.m. given . Pt transported via EMS to [facility] intubated and w/KASEY .
--- NOTE | 2019-05-18 19:06 | RAPID ---
Physical Examination Vital Signs: Vital Signs Temperature 98.1 F 05/18/19 07:22 Pulse Rate 105 H 05/18/19 10:00 Respiratory Rate 20 05/18/19 07:22 Blood Pressure 133/65 05/18/19 10:00 O2 Sat by Pulse Oximetry (%) Findings/Remarks: Rapid response called at 17:10. The nurse found the patient in the bathroom unresponsive. On arrival, the patient was found lying in the bathroom with his pants down and blood tinged vomitus in the trash can in front of him. The patient was found to be pulseless. He was extricated from the bathroom and compressions were started. 911 was called. The AED was paced and ventilation via BVM was initiated. BLS protocol followed. Narcan 4mg x2 was administered intranasally. Narcan 4mg x2 was administered IM. EMS arrived and compressions were continued with KASEY device. EJ Line was placed. Patient was intubated by paramedics. ACLS was initiated and followed at this time. Patient remained pulseless and in asystole despite multiple rounds of Narcan, Epinephrine, and bicarb. The patient was transferred to EMS stretcher and transported to the hospital in the care of EMS while ACLS was in progress. Constitutional: Yes: [place], Other (unresponsive, diaphoretic) Eyes: Yes: Other (fixed, dilated) HENT: Yes: Other (vomitus in oropharynx/ nares) Cardiovascular: Yes: Other (pulseless) Respiratory: Yes: Other (apneic) Labs: CBC, BMP 05/04/19 14:50 05/04/19 14:50
[2019-05-18] MEDS ORDERED: BUPRENORPHINE/NALOXONE 4 MG/1 MG FILM PACKET SL SCH (22:00)
== END 2019-05-18 21:22 | disposition expired | DRG 772 ==
LOC: YASAS 10:41 → Y5N 14:24
PROVIDERS: ADMIT Neuromusculoskeletal Medicine & OMM; ATTEND Neuromusculoskeletal Medicine & OMM
PROC: HZ42ZZZ Group Counseling for Substance Abuse Treatment, Cognitive-Behavioral (ICD-10-PCS; principal; 2019-05-04)
PROC: 5A12012 Performance of Cardiac Output, Single, Manual (ICD-10-PCS; 2019-05-18)
DX: F11.20 Opioid dependence, uncomplicated (principal); F10.20 Alcohol dependence, uncomplicated; F13.20 Sedative, hypnotic or anxiolytic dependence, uncomplicated; F12.20 Cannabis dependence, uncomplicated; F17.210 Nicotine dependence, cigarettes, uncomplicated; F25.9 Schizoaffective disorder, unspecified; I10 Essential (primary) hypertension; J45.909 Unspecified asthma, uncomplicated; G40.909 Epilepsy, unspecified, not intractable, without status epilepticus; G47.00 Insomnia, unspecified; I46.9 Cardiac arrest, cause unspecified; R41.89 Other symptoms and signs involving cognitive functions and awareness; R63.4 Abnormal weight loss; Z86.19 Personal history of other infectious and parasitic diseases; Z91.19 Patient's noncompliance with other medical treatment and regimen; Z91.5 Personal history of self-harm; Z56.0 Unemployment, unspecified; Z59.0 Homelessness
CPT/HCPCS: 36415; 71046-TC-FY; 80053; 81003; 82962; 84450; 84460; 85027; 85610; 86593; 87389; 99283-25; J0735; Q2036